=== PATIENT | male | born 1990 | race Two or more races ===

== ENCOUNTER 2021-02-15 20:39 | Emergency (ER) | payer SELFPAY ==
[~2021-02-15] VITALS: Ht 188 cm; Wt 113.6 kg
[2021-02-15] MEDS ORDERED: ONDANSETRON ODT 4 MG ONE (21:17)
[2021-02-15] MEDS ORDERED: ONDANSETRON ODT 4 MG PO ONE (21:30)
[2021-02-15] MEDS ORDERED: SODIUM CHLORIDE 0.9% 1,000ML IVBOLUS ONE (22:00)
[2021-02-15] MEDS ORDERED: SODIUM CHLORIDE FLUSH 10ML SYR IVF ONE (22:00)
[2021-02-15] MEDS ORDERED: ONDANSETRON 2MG/ML, 2ML IVPush ONE (22:00)
[2021-02-15 22:14] LABS: BASOPHILS % (AUTO) 0 % (0-1); EOSINOPHILS % (AUTO) 0 % (1-7); LYMPHOCYTES % (AUTO) 6 % (22-44); MEAN CORPUSCULAR HGB CONC 34.7 g/dL (33.2-36.2); MEAN PLATELET VOLUME 8.3 fL (7.4-10.4); MONOCYTES % (AUTO) 7 % (2-9); NEUTROPHILS % (AUTO) 87 % (42-75); PLATELET COUNT 243 x10^3/uL (130-400); RED BLOOD COUNT 4.91 x10^6/uL (4.38-5.82); RED CELL DISTRIBUTION WIDTH 13.7 % (9.4-14.8)
[2021-02-15 22:17] LABS: ALBUMIN 3.8 g/dL (3.4-5.0); ANION GAP 21 mmol/L (5-15); CALCIUM 9.6 mg/dL (8.5-10.1); CHLORIDE 96 mmol/L (98-107)
[2021-02-15 22:20] LABS: ALANINE AMINOTRANSFERASE 129 U/L (12-78); ALKALINE PHOSPHATASE 100 U/L (45-117); BILIRUBIN,TOTAL 1.5 mg/dL (0.2-1.0); CREATININE 0.95 mg/dL (0.7-1.3); TOTAL PROTEIN 8.9 g/dL (6.4-8.2)
[2021-02-16] MEDS ORDERED: LORazepam 2 MG/ML, 1ML IVPush ONE ×2 (01:30→02:30)
[2021-02-16] MEDS ORDERED: FAMOTIDINE 20 MG/2 ML IVPush ONE (01:30)
[2021-02-16] MEDS ORDERED: PROMETHAZINE 25 MG/ML, 1ML IM ONE (01:30)
[2021-02-16] MEDS ORDERED: LORazepam 2 MG/ML, 1ML ONE (01:53)
[2021-02-16] MEDS ORDERED: POTASSIUM CHLORIDE 20 MEQ TAB.ER.PRT PO ONE (02:00)
[2021-02-16] MEDS ORDERED: THIAMINE 100MG TABLET PO ONE (02:00)
[2021-02-16] MEDS ORDERED: FAMOTIDINE 20 MG/2 ML ONE (02:13)
[2021-02-16] MEDS ORDERED: PROMETHAZINE 25 MG/ML, 1ML ONE (02:13)
[2021-02-16] MEDS ORDERED: POTASSIUM CHLORIDE 20 MEQ TAB.ER.PRT ONE (02:13)
[2021-02-16 02:22] VITALS: BP 155/91
[2021-02-16] MEDS ORDERED: THIAMINE 100MG TABLET ONE (03:01)
== END 2021-02-16 04:21 | disposition home or self-care (01) ==
LOC: ED 02-16 04:00
DX: K29.20 Alcoholic gastritis without bleeding (principal); F10.139 Alcohol abuse with withdrawal, unspecified; R45.4 Irritability and anger; R11.2 Nausea with vomiting, unspecified; R94.5 Abnormal results of liver function studies; R00.0 Tachycardia, unspecified; Y90.0 Blood alcohol level of less than 20 mg/100 ml
CPT/HCPCS: 36415; 80053; 80320; 83690; 85025; 93005; 96361; 96372; 96374; 96375; 99284; J2060; J2550; J7030; Q0162; G0480

== ENCOUNTER 2021-03-25 18:55 | Emergency (ER) | payer SELFPAY ==
[~2021-03-25] VITALS: Ht 188 cm; Wt 124.3 kg
[2021-03-25] MEDS ORDERED: ONDANSETRON 2MG/ML, 2ML ONE (19:29)
[2021-03-25] MEDS ORDERED: LORazepam 2 MG/ML, 1ML IV ONE (19:30)
[2021-03-25] MEDS ORDERED: SODIUM CHLORIDE FLUSH 10ML SYR IVF ONE (19:30)
[2021-03-25] MEDS ORDERED: THIAMINE 100MG TABLET PO ONE (19:30)
[2021-03-25] MEDS ORDERED: ONDANSETRON 2MG/ML, 2ML IVPush ONE (19:30)
[2021-03-25] MEDS ORDERED: SODIUM CHLORIDE 0.9% 1,000ML IVBOLUS ONE (19:30)
[2021-03-25] MEDS ORDERED: LORazepam 2 MG/ML, 1ML ONE (19:31)
[2021-03-25 19:33] LABS: BASOPHILS % (AUTO) 1 % (0-1); EOSINOPHILS % (AUTO) 0 % (1-7); LYMPHOCYTES % (AUTO) 9 % (22-44); MEAN CORPUSCULAR HEMOGLOBIN 32.8 pg (27.5-34.5); MEAN CORPUSCULAR HGB CONC 34.5 g/dL (33.2-36.2); MEAN PLATELET VOLUME 7.8 fL (7.4-10.4); MONOCYTES % (AUTO) 4 % (2-9); NEUTROPHILS % (AUTO) 87 % (42-75); PLATELET COUNT 237 x10^3/uL (130-400); RED BLOOD COUNT 4.84 x10^6/uL (4.38-5.82); RED CELL DISTRIBUTION WIDTH 13.4 % (9.4-14.8)
--- NOTE | 2021-03-25 19:34 | NUR ---
PT RESTING IN BED, AND MD ORDERS RECEIVED, PIV STARTED TO RIGHT AC X1 ATTEMPT, 18G. PT TOLERATED WELL, AND IVF NS 1 LITER STARTED TO RUN OVER AN HOUR. PTS BLOOD DRAWN AT SAME TIME AND GIVEN TO SENIOR MAINTENANCE MECHANIC TO SEND DOWN. PTS SO AT BEDSIDE, AND TECH TO BEDSIDE TO DO AN EKG ON THE PT. PT PLACED ON CR MONITOR, AND O2 SAT PROBE. MEDS GIVE, PER MD ORDER, SEE EMAR.
[2021-03-25 19:44] LABS: ALANINE AMINOTRANSFERASE 123 U/L (12-78); ALBUMIN 3.2 g/dL (3.4-5.0); ANION GAP 13 mmol/L (5-15); CALCIUM 8.3 mg/dL (8.5-10.1); CHLORIDE 100 mmol/L (98-107); CREATININE 0.64 mg/dL (0.7-1.3)
[2021-03-25 19:47] LABS: ALKALINE PHOSPHATASE 91 U/L (45-117); BILIRUBIN,TOTAL 1.2 mg/dL (0.2-1.0)
[2021-03-25] MEDS ORDERED: POTASSIUM CHLORIDE 20 MEQ TAB.ER.PRT ONE (19:53)
[2021-03-25] MEDS ORDERED: MAGNESIUM OXIDE 400 MG TABLET ONE (19:53)
[2021-03-25] MEDS ORDERED: THIAMINE 100MG TABLET ONE (19:53)
[2021-03-25] MEDS ORDERED: MAGNESIUM OXIDE 400 MG TABLET PO ONE (19:55)
[2021-03-25] MEDS ORDERED: POTASSIUM CHLORIDE 20 MEQ TAB.ER.PRT PO ONE (20:00)
[2021-03-25 20:40] VITALS: BP 148/95
[2021-03-25] MEDS ORDERED: LORazepam 1MG TABLET PO ONE (21:00)
[2021-03-25] MEDS ORDERED: LORazepam 1MG TABLET ONE (21:05)
--- NOTE | 2021-03-25 21:25 | NUR ---
F/U AND D/C INSTRUCTIONS WITH PRESCRIPTIONS AND LIST OF ALCOHOL DETOX FACILITY PROVIDED TO PT AND HE V/U. PT AMBULATED TO THE DISCHARGE DESK.
== END 2021-03-25 21:27 | disposition home or self-care (01) ==
LOC: ED 20:16
DX: K29.20 Alcoholic gastritis without bleeding (principal); F10.131 Alcohol abuse with withdrawal delirium; E87.6 Hypokalemia; R94.5 Abnormal results of liver function studies; R00.0 Tachycardia, unspecified; Y90.0 Blood alcohol level of less than 20 mg/100 ml
CPT/HCPCS: 36415; 80053; 80320; 83690; 85025; 93005; 96361; 96374; 96375; 99284; J2060; J2405; J7030; G0480